=== PATIENT | female | born 1970 | race Caucasian/White ===

== ENCOUNTER 2022-10-02 12:10 | Outpatient (REF) | payer MEDICARE, MEDICAID, SELFPAY ==
--- NOTE | ~2022-10-02 | XR_ITS ---
EXAMINATION: XR CHEST CLINICAL INFORMATION: Cough. COMPARISON: None TECHNIQUE: 2 views of the chest were obtained. FINDINGS: The lungs are well-expanded and clear of acute process. Heart size and pulmonary vascularity is normal. No gross bony abnormality seen. There is minimal sclerotic hypertrophy right sternoclavicular joint. Incidental finding of a ventral plate and screws C7 and T1 vertebra for fusion. XR/XR chest 2V IMPRESSION: Unremarkable chest exam.
== END 2022-10-02 12:11 | disposition home or self-care (01) ==
LOC: HO.XRAY 12:10
PROVIDERS: PCP Internal Medicine; Visit Provider Internal Medicine
DX: R05.9 Cough, unspecified (principal)
CPT/HCPCS: 71046

== ENCOUNTER 2023-07-26 10:46 | Outpatient (AMB) | payer MEDICARE, MEDICAID, SELFPAY ==
--- NOTE | 2023-07-26 10:49 | A.OFFPC_ITS ---
Vital Signs 07/26/23 10:51 Height 5 ft 4 in Weight 128 lb 4 oz BMI 22.0 BP 110/74 Blood Pressure Location Lt brachial Position Sitting Pulse 80 Pulse Source Pulse Oximeter Pulse Oximetry (%) 98 Oxygen Delivery Method Room Air Intake Visit Reasons: Right side behind ear/ skull pain Intake Note: Patient is here today for right side behind ear pain radiating down the neck wit h blurry vision, pressure in the right eye, nauseous, ongoing for four months. 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: Not Required per policy Accompanied by: Self / Same As Patient Allergies No Known Allergies [No Known Allergies*] Allergy (Verified 07/26/23 10:51) Tobacco use date assessed: 07/26/23 Dental Screening Dental Screen Date: 07/26/23 Did you have a dental visit in the last 12 months?: Yes Did you have a dental problem in the last 6 months where you did not have access to dental care?: No Was dental information given to patient?: Patient has dentist HPI Right side behind ear/ skull pain HPI Details severe dot behind right ear and behind right eye for a month; getting worse [facility] Surgical History History of appendectomy History of knee surgery Social History (Updated 07/26/23 @ 10:55 by JEWEL Abarca) Housing: Condominium Alcohol intake: current Alcohol intake frequency: holidays/special occasions only Patient Tobacco Use Status: Never used Tobacco e-Cigarette/Vaping Use: Never Used Second Hand Smoke Exposure: No service: No Current occupational status: employed Cognitive needs: No Hearing needs: No Vision needs: Yes (glasses) Questionnaire Thrive Questionnaire Date Thrive assessed: 01/21/23 AUDIT C Alcohol Use Questionnaire (AUDIT-C) 1. How often do you have a drink containing alcohol?: Monthly or less 2. How many drinks containing alcohol do you have on a typical day when you are drinking?: 1 or 2 Total Score: 1 VIANCA-7 AMB Questionnaire VIANCA-7 Date VIANCA - 7 assessed: 01/21/23 Source: Developed by Drs. Terrell Suero, Greta Ta, Yung Howard and colleagues, with an educational estela from [employer] Review of Systems Const Denies chills and Denies weight loss Card Denies chest pain, Denies syncope, Denies irregular heart rhythm and Denies dyspnea Resp Denies chest congestion, Denies cough and Denies dyspnea GI Denies abdominal pain, Denies change in stool character, Denies nausea and Denies vomiting Musc Denies deformity and Denies joint swelling Neuro Denies syncope Physical exam (Primary Care) Vital Signs: Last Vital Signs Pulse 80 07/26/23 10:51 BP 110/74 07/26/23 10:51 Pulse Ox 98 07/26/23 10:51 Oxygen Delivery Method Room Air 07/26/23 10:51 BMI result Body Mass Index 22.0 Tobacco/Smoking Status: Tobacco use Status Tobacco use date assessed 07/26/23 07/26/23 10:56 Patient Tobacco Use Status Never used Tobacco 07/26/23 10:56 e-Cigarette/Vaping Use Never Used 07/26/23 10:56 Thrive Assessment: Date of Thrive Assessment Date Thrive assessed 01/21/23 07/26/23 10:56 Const General: cooperative and no acute distress HENMT Head: Yes normal to inspection Neck Neck: Yes normal visual inspection, Yes full ROM and Yes no lymphadenopathy Chest Chest palpation & inspection: normal inspection of the chest Resp Effort & Inspection: normal respiratory effort Neuro Other: nl Assessment and Plan Assessment & Plan (1) Unilateral headache: Code(s): R51.9 - Headache, unspecified Plan: ct head timothy Orders: Orders CT head/brain wo IV con Today R51.9 - Headache, unspecified Coding Level of Care Code Est Pt Level 3 (44323) Diagnoses Unilateral headache R51.9
[2023-07-26 10:51] VITALS: BP 110/74; PULSE 80; O2SAT 98; BMI 22.0
== END 2023-07-26 11:11 | disposition home or self-care (01) ==
PROVIDERS: PCP Internal Medicine; Visit Provider Internal Medicine
DX: R51.9 Headache, unspecified (principal)
CPT/HCPCS: 99213

== ENCOUNTER 2023-07-26 11:47 | Outpatient (REF) | payer MEDICARE, MEDICAID, SELFPAY ==
--- NOTE | ~2023-07-26 | CT_ITS ---
EXAMINATION: CT HEAD WITHOUT CONTRAST CLINICAL INFORMATION: Headache COMPARISON: None available. TECHNIQUE: Contiguous axial imaging was performed from the skull base to vertex without intravenous administration of contrast. This CT examination was performed using dose optimization techniques as appropriate, variously including the following: *Automated exposure control *Adjustment of mA and/or kV according to patient size (this includes techniques or standardized protocols for targeted exams where dose is matched to indication/reason for exam; i.e. extremities or head) *Use of iterative reconstruction technique DLP: 624 mGy-cm FINDINGS: Unenhanced examination demonstrates the cortical sulci and ventricular system to be appropriate in size and morphology for the patient's age. No focal area of abnormal attenuation within the brain parenchyma is appreciated. No mass effect, midline shift, or intracranial hemorrhage is seen. No abnormal extra-axial fluid collection is noted. The incidentally visualized portions of the orbits and paranasal sinuses appear unremarkable CT/CT head/brain wo IV con IMPRESSION: No acute intracranial pathology.
== END 2023-07-26 11:48 | disposition home or self-care (01) ==
LOC: HO.CT 11:47
PROVIDERS: PCP Internal Medicine; Visit Provider Internal Medicine
DX: R51.9 Headache, unspecified (principal)
CPT/HCPCS: 70450